=== PATIENT | male | born 1980 | race Caucasian/White ===

== ENCOUNTER → 2016-08-16 | Outpatient (CLI) | payer OTHER ==
--- NOTE | 2016-08-16 21:28 | REP ---
CT LUMBAR SPINE WITHOUT CONTRAST: HISTORY: Back pain. There is no disc bulge or herniation at the L1-2 level. The L1 nerves exit the neural foramina without compression. A diffuse disc bulge is present at the L2-3 level. There is minimal compression of the thecal sac. The L2 nerves exit the neural foramina without compression. A diffuse disc bulge is present at the L3-4 level. There are 2 mm of retrolisthesis of L3 on L4. There is minimal compression of the thecal sac. The L3 nerves exit the neural foramina without compression. A diffuse disc bulge is present at the L4-5 level. There is minimal compression of the thecal sac. There is hypertrophy of the posterior articulating facets. The L4 nerves exit the neural foramina without compression. The patient is status post L5-S1 anterior and posterior spinal fusion and L5 laminectomy. Bone graft material is present anteriorly and metal rods and pedicle screws posteriorly. A disc bulge is present at this level. There is no thecal sac compression. There are 5 mm of grade 1 spondylolisthesis of L5 on S1. There is compression of the left L5 nerve in the neural foramen. The right L5 nerve exits the neural foramen without compression. The L3-4 and L4-5 intervertebral discs are decreased in height consistent with disc degeneration. IMPRESSION: 1. Diffuse disc bulges at the L3-4 and L4-5 levels with minimal thecal sac compression. 2. Diffuse disc bulge and retrolisthesis at the L3-4 level with minimal thecal sac compression. 3. The patient is status post L5-S1 anterior and posterior spinal fusion and L5 laminectomy. There is grade 1 spondylolisthesis of L5 on S1. There is compression of the left L5 nerve in the neural foramen. Signed by Jacobo Washington MD 08/17/2016 07:52 A
--- NOTE | 2016-08-16 22:20 | REP ---
MRI LUMBAR SPINE WITHOUT AND WITH CONTRAST: HISTORY: Back pain. Decreased signal intensity on T2-weighted images is present in the L2-3 through L5-S1 intervertebral discs. The discs are decreased in height. These findings are consistent with disc degeneration. There is no disc bulge or herniation at the L1-2 level. The L1 nerves exit the neural foraminal without compression. A diffuse disc bulge is present at the L2-3 level. There is minimal compression of the thecal sac. The L2 nerves exit the neural foramina without compression. A diffuse disc bulge is present at the L3-4 level. There are 2 mm of retrolisthesis of L3 on L4. There is minimal compression of the thecal sac. The L3 nerves exit the neural foramina without compression. A diffuse disc bulge is present at the L4-5 level. There is minimal compression of the thecal sac. There is hypertrophy of the posterior articulating facets. The L4 nerves exit the neural foramina without compression. The patient is status post L5-S1 anterior and posterior spinal fusion and L5 laminectomy. Bone graft material is present anteriorly and metal rods and pedicle screws posteriorly. A diffuse disc bulge is present at the L5-S1 level. There is no thecal sac compression. There is hypertrophy of the posterior articulating facets. There is compression of the left L5 nerve in the neural foramen. The right L5 nerve exits the neural foramen without compression. Enhancing scar tissue is present at the laminectomy site. The conus medullaris is normal in appearance terminating at the level of the T12-L1 intervertebral disc. A hemangioma is present in the L2 vertebral body. Increased signal intensity on T2-weighted images is present in the endplates of the L5 and S1 vertebral bodies. This represents degenerative change. IMPRESSION: 1. Diffuse disc bulges at the L2-3 and L4-5 levels with minimal thecal sac compression. 2. Diffuse disc bulge and retrolisthesis at L3-4 level with minimal thecal sac compression. 3. The patient is status post L5-S1 anterior and posterior spinal fusion and L5 laminectomy. There is grade 1 spondylolisthesis of L5 on S1. There is compression of the left L5 nerve in the neural foramen. Signed by Jacobo Washington MD 08/17/2016 07:51 A
== END ==
LOC: M RAD 13:06
PROVIDERS: ATTEND Orthopaedic Surgery
DX: M51.26 Other intervertebral disc displacement, lumbar region (principal); M43.17 Spondylolisthesis, lumbosacral region; M48.06 Spinal stenosis, lumbar region; Z98.1 Arthrodesis status
CPT/HCPCS: 72131; 72158; A9576

== ENCOUNTER 2018-05-09 12:58 | Inpatient (IN) | payer OTHER ==
[~2018-05-09] VITALS: Ht 180.3 cm; Wt 113.5 kg
[2018-05-09] MEDS ORDERED: OMEP20TA PO (13:23)
[2018-05-09] MEDS ORDERED: ABIL1TAB11 PO (13:23)
[2018-05-09] MEDS ORDERED: CLON0.5T8 PO (13:23)
[2018-05-09] MEDS ORDERED: IRBE150T14 PO (13:23)
[2018-05-09] MEDS ORDERED: SERT-155 PO (13:23)
[2018-05-09 13:44] LABS: HEMATOCRIT 47.3 % (42.0-52.0); HEMOGLOBIN 16.5 g/dl (13.5-17.5); MEAN CORPUSCULAR HEMOGLOBIN 30.9 pg (27.0-33.0); MEAN CORPUSCULAR HGB CONC 34.9 g/dl (32.0-36.5); MEAN CORPUSCULAR VOLUME 88.6 fl (80.0-96.0); PLATELET COUNT, AUTOMATED 296 10^3/uL (150-450); RED BLOOD COUNT 5.34 10^6/uL (4.30-6.10); WHITE BLOOD COUNT 12.9 10^3/uL (4.0-10.0)
[2018-05-09 14:04] LABS: AMPHETAMINES LEVEL URINE NEGATIVE (NEGATIVE); BARBITURATES URINE NEGATIVE (NEGATIVE); BENZODIAZEPINES URINE NEGATIVE (NEGATIVE); CANNABINOIDS URINE POSITIVE (NEGATIVE); COCAINE METABOLITE URINE NEGATIVE (NEGATIVE); METHADONE URINE NEGATIVE (NEGATIVE); OPIATES URINE NEGATIVE (NEGATIVE); PHENCYCLIDINE URINE NEGATIVE (NEGATIVE)
[2018-05-09 14:20] LABS: ACETAMINOPHEN LEVEL < 2.0 UG/ML (10.0-30.0); ALT/SGPT 66 U/L (12-78); BILIRUBIN,DIRECT < 0.1 MG/DL (0.0-0.2); BILIRUBIN,TOTAL 0.3 MG/DL (0.2-1.0); BLOOD UREA NITROGEN 13 MG/DL (7-18); CALCIUM LEVEL 9.1 MG/DL (8.5-10.1); CARBON DIOXIDE LEVEL 28 MEQ/L (21-32); CHLORIDE LEVEL 102 MEQ/L (98-107); CREATININE FOR GFR 1.07 MG/DL (0.70-1.30); ETHYL ALCOHOL (ETHANOL) 0.003 % (0.000-0.010); GLOMERULAR FILTRATION RATE > 60.0 (>60); GLUCOSE, FASTING 94 MG/DL (70-100); POTASSIUM SERUM 4.2 MEQ/L (3.5-5.1); SALICYLATE LEVEL 2.7 MG/DL (5.0-30.0); SODIUM LEVEL 138 MEQ/L (136-145); TOTAL PROTEIN 7.2 GM/DL (6.4-8.2)
[2018-05-09] MEDS ORDERED: MOM 30ML SUSPENSION UDC PO PRN (16:00)
[2018-05-09] MEDS ORDERED: MAALOX 30 ML SUSP *UDC PO PRN (16:00)
[2018-05-09] MEDS ORDERED: IBUP80TA PO (16:08)
[2018-05-09] MEDS ORDERED: OMEP20CA3 PO (16:08)
[2018-05-09] MEDS ORDERED: SERT-138 PO (16:08)
[2018-05-09] MEDS ORDERED: NICOTINE 14 MG/24 HR TRANSDERMAL TD ONE (19:30)
[2018-05-09] MEDS: traZODone 50 MG TAB PO PRN (20:32)
[2018-05-09] MEDS: clonazePAM 0.5 MG TAB PO SCH (20:32)
[2018-05-09 20:38] VITALS: BP 126/75
[2018-05-09 20:46] VITALS: BP 126/75
[2018-05-10 06:44] VITALS: BP 151/98
[2018-05-10] MEDS: clonazePAM 0.5 MG TAB PO SCH ×3 (08:41→20:05)
[2018-05-10] MEDS: NICOTINE 14 MG/24 HR TRANSDERMAL TD SCH (08:41)
[2018-05-10] MEDS: OMEPRAZOLE 20 MG CAP PO SCH (08:41)
[2018-05-10] MEDS ORDERED: SERTRALINE HCL 50 MG TAB PO SCH (09:00)
[2018-05-10] MEDS: hydroCHLOROthiazide 12.5 MG CAPSULE PO SCH (11:30)
[2018-05-10] MEDS: IRBESARTAN 150 MG TAB PO SCH (11:30)
[2018-05-10] MEDS ORDERED: PILL CRUSHER/CUTTER 1 EACH XX PRN (14:15)
[2018-05-10 18:00] VITALS: BP 140/91
[2018-05-10] MEDS: traZODone 50 MG TAB PO PRN (20:05)
[2018-05-10] MEDS: ARIPiprazole 15 MG TAB (AbiLIFY) PO SCH (20:05)
[2018-05-10] MEDS ORDERED: IBUPROFEN 800 MG TAB PO PRN (20:30)
[2018-05-10] MEDS: IBUPROFEN 800 MG TAB PO PRN (20:42)
[2018-05-11 06:00] VITALS: BP 139/81
[2018-05-11] MEDS: IBUPROFEN 800 MG TAB PO PRN ×2 (06:52→15:02)
[2018-05-11] MEDS: hydroCHLOROthiazide 12.5 MG CAPSULE PO SCH (08:19)
[2018-05-11] MEDS: SERTRALINE 100 MG TAB PO SCH (08:19)
[2018-05-11] MEDS: IRBESARTAN 150 MG TAB PO SCH (08:19)
[2018-05-11] MEDS: clonazePAM 0.5 MG TAB PO SCH ×3 (08:19→20:16)
[2018-05-11] MEDS: OMEPRAZOLE 20 MG CAP PO SCH (08:19)
[2018-05-11] MEDS: NICOTINE 14 MG/24 HR TRANSDERMAL TD SCH (08:20)
[2018-05-11 18:09] VITALS: BP 130/89
[2018-05-11] MEDS: traZODone 100 MG TAB PO PRN (20:16)
[2018-05-11] MEDS: ARIPiprazole 15 MG TAB (AbiLIFY) PO SCH (20:16)
[2018-05-11] MEDS: ACETAMINOPHEN TAB 650MG DOSE (2X325MG) PO PRN (21:20)
[2018-05-12] MEDS: IBUPROFEN 800 MG TAB PO PRN ×2 (06:17→14:11)
[2018-05-12 06:47] VITALS: BP 134/90
[2018-05-12] MEDS: NICOTINE 14 MG/24 HR TRANSDERMAL TD SCH (08:15)
[2018-05-12] MEDS: clonazePAM 0.5 MG TAB PO SCH ×3 (08:15→19:59)
[2018-05-12] MEDS: hydroCHLOROthiazide 12.5 MG CAPSULE PO SCH (08:15)
[2018-05-12] MEDS: OMEPRAZOLE 20 MG CAP PO SCH (08:15)
[2018-05-12] MEDS: SERTRALINE 100 MG TAB PO SCH (08:16)
[2018-05-12] MEDS: IRBESARTAN 150 MG TAB PO SCH (08:18)
--- NOTE | 2018-05-12 09:11 | MHHPE ---
DATE OF ADMISSION: 05/09/2018 HISTORY OF PRESENT ILLNESS: This is the second psychiatric hospitalization for this 37-year-old white man who was admitted with a history of depression, but this has been worsening for the past month to the point where he has been feeling hopeless and helpless. He called the [facility] clinic and voiced suicidal ideations. He was brought into the hospital by the police and he voiced thoughts of wanting to cut himself. He has chronic back pain and is status post spinal cord fusion and that failed in 2016 and now he has a spinal cord stimulator which only helps partially. He states that he feels like a burden to his family, that his had to go out and get a second job at one point because of their finances. His disability finally went through so he is hoping once he starts getting money from disability that that might relieve some of the financial burden. The patient attends [facility] clinic and he was on Celexa for a long time and it worked until it stopped working and then about a month ago he was started on his current medications of Zoloft which is 150 mg and Abilify 5 mg daily. He is also on Klonopin 0.5 mg three times a day and he takes trazodone 50 mg at bedtime as needed insomnia and he does feel that the trazodone definitely helps him sleep well. He denies that he has ever made any suicidal attempts. He does have a history of admission to [facility] inpatient mental health unit in November 2006 where he was diagnosed with mood disorder and substance induced mood disorder. He was feeling depressed and he was abusing alcohol and pot at the time. The major stressor at the time was that his son had with congenital heart disease. FAMILY HISTORY: This is negative for any psychiatric illness in the family or any suicides. ABUSE HISTORY: He denies any history of any physical or sexual abuse. SUBSTANCE ABUSE: As noted, he had problems with alcohol abuse in the past, not anymore. He is still using cannabis, but now he feels that it helps him with his pain. MEDICAL HISTORY: The patient has chronic pain in his back and has a spinal cord stimulator that is only partially effective. REVIEW OF SYSTEMS: VITAL SIGNS: Blood pressure (cut off) NEUROMUSCULAR SYSTEM: The patient's gait is normal and there is no involuntary movements noted. APPEARANCE: The patient does not appear to be in any apparent distress. All other systems were reviewed and found to be negative. MENTAL STATUS EXAMINATION: The patient is alert and oriented times three. Eye contact is fair. Psychomotor activity is decreased. There is no formal thought disorder noted. Mood is depressed. Affect full range and appropriate. (cut off) homicidal. The patient admits to having suicidal thoughts on the day of admission. Concentration is fair. Memory intact. Insight and judgment is good. DIAGNOSIS: Major depressive disorder, recurrent, severe, without psychotic symptoms. I would increase his Zoloft to 200 mg daily. I will increase his Abilify from 5 mg to 7.5 mg daily. We will continue Klonopin 0.5 mg three times a day and trazodone 50 mg at bedtime. We will further evaluate and titrate medications as indicated and when stable we will discharge him with appropriate follow-up.
--- NOTE | 2018-05-12 11:06 | MHIPNPDOC ---
[facility] Progress Note Progress Note DATE OF SERVICE: 05/12/18 HISTORY:This is the second psychiatric hospitalization for this 37-year-old white man who was admitted with a history of depression, but this has been worsening for the past month to the point where he has been feeling hopeless and helpless. He called the [facility] health clinic and voiced suicidal ideations. He was brought into the hospital by the police and he voiced thoughts of wanting to cut himself. He has chronic back pain and is status post spinal cord fusion and that failed in 2016 and now he has a spinal cord stimulator which only helps partially. He states that he feels like a burden to his family, that his had to go out and get a second job at one point because of their finances. His disability finally went through so he is hoping once he starts getting money f rom disability that that might relieve some of the financial burden. VITAL SIGNS: See below. NEW TEST RESULTS: See below. CURRENT MEDICATIONS: See below. MENTAL STATUS EXAMINATION: The patient is alert and oriented times three. Eye contact is good. P sychomotor activity is average. There is no formal thought disorder noted. Denies psychosis, hallucinations, delusions. Mood is "better". Affect full range and appropriate. Denies suicidal and homicidal thoughts Concentration is good. Memory intact. Insight and judgment is fair. DIAGNOSES: 1.Major depressive disorder, recurrent, severe, without psychotic symptoms. ASSESSMENT:Pt seen and states that his mood is better. States he's finding his med adjustments beneficial and tolerating them well. States he slept well last night with the use of trazodone which has also benefited his mood. He is attending groups and finding them helpful. States he's and his is supportive. States he has an appt [facility] on 05/22/18 that he's looking forward to attending. He denies insomnia, SI/HI, hallucinations, delusions. Pt feels safe here. MANAGEMENT PLAN: continue current plan Medications: Zoloft 200 mg daily Abilify 7.5 mg daily. Klonopin 0.5 mg three times a day trazodone 50 mg at bedtime TIME SPENT: 30 minutes. Vital Signs Vital Signs Date Time Temp Pulse Resp B/P (MAP) Pulse Ox O2 Delivery O2 Flow Rate FiO2 05/12/18 08:18 138/98 05/12/18 06:47 97.6 85 16 05/11/18 06:00 96 Room Air Current Medications Current Medications Acetaminophen (Tylenol Tab) 650 mg Q6HP PRN PO HEADACHE or DISCOMFORT Last administered on 05/11/18 21:20; Start 05/09/18 at 16:00 Al Hydrox/Mg Hydrox/Simethicone (Mylanta) 30 ml Q4HP PRN PO HEARTBURN/INDIGESTION; Start 05/09/18 at 16:00 Aripiprazole (AbiLIFY) 5 mg QHS PO Last administered on 05/09/18at 20:32; Start 05/09/18 at 21:00; Stop 05/10/18 at 13:56; Status DC Aripiprazole (AbiLIFY) 7.5 mg QHS PO Last administered on 05/11/18at 20:16; Start 05/10/18 at 21:00 Clonazepam (KlonoPIN) 0.5 mg TID PO Last administered on 05/12/18at 08:15; Start 05/09/18 at 21:00 Home Med (Med Rec Complete!) ASDIRECTED XX ; Start 05/09/18 at 16:15; Stop 05/09/18 at 16:15; Status DC Hydrochlorothiazide (Hydrodiuril) 12.5 mg DAILY PO Last administered on 05/12/18at 08:15; Start 05/10/18 at 09:00 Ibuprofen (Advil) 800 mg Q8HP PRN PO MODERATE PAIN (PS 5-7) Last administered on 05/12/18at 06:17; Start 05/10/18 at 20:15 Ibuprofen (Advil) 800 mg Q8HP PRN PO MODERATE PAIN (PS 5-7); Start 05/10/18 at 20:30; Status UNV Irbesartan (Avapro) 150 mg DAILY PO Last administered on 05/12/18 08:18; Start 05/10/18 at 09:00 Magnesium Hydroxide (Milk Of Magnesia) 30 ml DAILYPRN PRN PO CONSTIPATION Last administered on 05/11/18 17:10; Start 05/09/18 at 16:00 Nicotine (Nicoderm Cq 14mg) 1 patch DAILY TD Last administered on 05/12/18 08:15; Start 05/10/18 at 09:00 Omeprazole (PriLOSEC) 20 mg DAILY PO Last administered on 05/12/18at 08:15; Start 05/10/18 at 09:00 Sertraline HCl (Zoloft) 150 mg DAILY PO Last administered on 05/10/18at 08:42; Start 05/10/18 at 09:00; Stop 05/10/18 at 13:56; Status DC Sertraline HCl (Zoloft) 200 mg DAILY PO Last administered on 05/12/18at 08:16; Start 05/11/18 at 09:00 Trazodone HCl (Desyrel) 50 mg QHSP PRN PO INSOMNIA Last administered on 05/10/18at 20:05; Start 05/09/18 at 16:00; Stop 05/11/18 at 14:13; Status DC Trazodone HCl (Desyrel) 100 mg QHSP PRN PO INSOMNIA Last administered on 05/11/18at 20:16; Start 05/11/18 at 14:15 Allergies Coded Allergies: Bupropion (Verified Adverse Reaction, Mild, hand itching, 05/09/18) LUIS DURAN DO May 12, 2018 11:05 am
[2018-05-12] MEDS: ACETAMINOPHEN TAB 650MG DOSE (2X325MG) PO PRN ×2 (12:26→20:01)
--- NOTE | 2018-05-12 17:05 | HPE ---
DATE OF ADMISSION: 05/09/2018 HISTORY OF PRESENT ILLNESS: Please refer to psychiatric history and evaluation for further details on this admission. This examination and history is intended for medical issues, which may need treatment, followup or consultation on this 37-year-old male. ALLERGIES: BUPROPION. PAST MEDICAL HISTORY: Hypertension, gastroesophageal reflux disease (GERD), chronic back pain, right hand and wrist pain. PAST SURGICAL HISTORY: Repair of shattered bones in right hand and fractured wrist in the past. Back surgery. He has a dorsal column stimulator. He has left leg neuropathy. He follows with Dr. Hinds at [facility]. FAMILY HISTORY: Mother with hypertension. Father with hypertension. SOCIAL HISTORY: He is . He has three children, he had four but one due to a heart defect 15 days after . He has a living boy age 10, living girl age 14, living girl age 15. He has alcohol and drug abuse problem. He quit drinking 3 years ago. He occasionally smokes marijuana. When he had his back surgery he quit smoking but he now has an occasional cigarette. LABORATORY DATA: WBC 12.9, hemoglobin 16.6, hematocrit 37.3. Platelets 296. Electrolytes are normal. BUN 13, creatinine 1.07. Urine was positive for cannabinoids. REVIEW OF SYSTEMS: Ten systems review was done and he has pain in his right hand and wrist that he had operated on years ago. He states that he fell several days ago. He was seen by Dr. Tolentino at [facility]. He has a splint on. He is having a CT of the hand and will be following up with him. 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 Otherwise, systems review is unremarkable. He had no problems with his bowel or bladder control. He has a dorsal column stimulator in place. PHYSICAL EXAMINATION: GENERAL: 37-year-old cooperative male in no acute distress. Blood pressure 140/90, pulse 98, respirations 16, temperature 97. Height 71 inches, weight 100.8 kg. The patient is alert and oriented. HEENT: Pupils are equal and reactive to light. Extraocular muscles intact. Sclerae clear. Conjunctivae normal. No facial asymmetry. Pharynx, gums and tongue pink and moist. Tongue is midline. NECK: Supple without lymphadenopathy, thyromegaly or goiter. Carotids are 2+ without bruit. CHEST: Clear to auscultation without wheeze or retraction. HEART: Regular. ABDOMEN: Benign. Bowel sounds positive. GENITOURINARY/RECTAL: Not done. EXTREMITIES: No clubbing, cyanosis, and edema. Peripheral pulses equal and palpable bilaterally. Right wrist and posterior hand tender to palpation, able to flex and extend. Can make a fist, but is stable. Capillary refill is less than 2 seconds. Hand is warm. Radial pulse is palpable. IMPRESSION/PLAN: 1. Injury secondary to fall of right wrist and hand. Continue with splint. I have ordered ibuprofen 800 mg one by mouth every 8 hours as needed for pain. 2. Chronic back pain. Continue to followup with Dr. Hinds at [facility]. 3. Hypertension. Blood pressure is slightly elevated. He is on hydrochlorothiazide and irbesartan. He is currently in pain. After receiving ibuprofen, we will have blood pressure monitored. May need to increase the irbesartan. 4. History of gastroesophageal reflux disease (GERD). Good response with Prilosec. 5. Psychiatric plan per psychiatry.
[2018-05-12 18:00] VITALS: BP 132/85
[2018-05-12] MEDS: ARIPiprazole 15 MG TAB (AbiLIFY) PO SCH (20:00)
[2018-05-12] MEDS: traZODone 100 MG TAB PO PRN (20:00)
--- NOTE | 2018-05-12 21:15 | MHIPN ---
DATE: 05/11/2018 The patient states, "I am doing great today." He says that he slept very good. He has no complaints. MENTAL STATUS EXAMINATION: He is alert and oriented times three. Eye contact is fair. Psychomotor activity is normal. He is verbally spontaneous. There is no formal thought disorder. Mood is "great." Affect is full range and appropriate. He is not psychotic, suicidal or homicidal. Concentration is fair. Memory is intact. Insight and judgment fair. DIAGNOSES: 1. Major depressive disorder, recurrent, severe and without psychotic symptoms. TREATMENT PLAN: At this point, we will continue to monitor the patient for continued elevation of suicidal ideation and stabilization of his mood.
[2018-05-13] MEDS: IBUPROFEN 800 MG TAB PO PRN (06:30)
[2018-05-13 07:00] VITALS: BP 132/85
[2018-05-13 08:10] VITALS: BP 132/82
[2018-05-13] MEDS: IRBESARTAN 150 MG TAB PO SCH (08:10)
[2018-05-13] MEDS: OMEPRAZOLE 20 MG CAP PO SCH (08:10)
[2018-05-13] MEDS: clonazePAM 0.5 MG TAB PO SCH (08:10)
[2018-05-13] MEDS: NICOTINE 14 MG/24 HR TRANSDERMAL TD SCH (08:10)
[2018-05-13] MEDS: SERTRALINE 100 MG TAB PO SCH (08:10)
[2018-05-13] MEDS: hydroCHLOROthiazide 12.5 MG CAPSULE PO SCH (08:10)
--- NOTE | 2018-05-13 09:06 | MHDSPDOC ---
[facility] Discharge Summary Discharge Summary DATE OF ADMISSION: May 09, 2018 at 4:00 pm DATE OF DISCHARGE: May 13, 2017 DISCHARGE DIAGNOSES: 1. Major depressive disorder, recurrent, severe and without psychotic symptoms. REASON FOR ADMISSION: This is the second psychiatric hospitalization for this 37-year-old white man who was admitted with a history of depression, but this has been worsening for the past month to the point where he has been feeling hopeless and helpless. He called the [place] mental health clinic and voiced suicidal ideations. He was brought into the hospital by the police and he voiced thoughts of wanting to cut himself. He has chronic back pain and is status post spinal cord fusion and that failed in 2016 and now he has a spinal cord stimulator which only helps partially. He states that he feels like a burden to his family, that his had to go out and get a second job at one point because of their finances. His disability finally went through so he is hoping once he starts getting money from disability that that might relieve some of the financial burden. CONSULTANTS INVOLVED:none TREATMENT AND PROGRESS ON THE UNIT : Pt was admitted to [facility], seen for psychiatric assessment and restarted on his outpatient medication zoloft increased to 200mg daily, abilify increased 7.5mg daily, klonopin 0.5mg tid for anxiety. He was provided trazodone 50mg qhs prn insomnia. Pt found his medications beneficial and tolerated them well. He attended groups daily during his stay. His symptoms improved with treatment. On day of discharge he denied depression, anxiety, insomnia, SI/HI, hallucinations, delusions. He was discharged home after family meeting with his friend with follow-up at [facility]. He felt safe for discharge. DISCHARGE ASSESSMENT: Pt seen and states that his mood is good. States he's looking forward to going home and being with his . States he believes drinking was what caused him to become depressed and suicidal as had 5 shots the night he came in which he now realizes was a mistake. States he plans to not drink alcohol anymore and advised not to with mental health illness and meds. States he's finding his med adjustments beneficial and tolerating them well. States he slept well last night with the use of trazodone. He is attending groups and finding them helpful. States he's and his is supportive. States he has an appt already and [facility] on 05/22/18 that he's looking forward to attending. He denies depression, anxiety, insomnia, SI/HI, hallucinations, delusions. Pt feels safe to be discharged home. MENTAL STATUS EXAMINATION ON DISCHARGE: The patient is alert and oriented times three. Eye contact is good. Psychomotor activity is average. There is no formal thought disorder noted. Denies psychosis, hallucinations, delusions. Mood is "good". Affect full range, euthymic, and appropriate. Denies suicidal and homicidal thoughts Concentration is good. Memory intact. Insight and judgment is good MEDICATIONS ON DISCHARGE: Zoloft 200 mg daily Abilify 7.5 mg daily. Klonopin 0.5 mg three times a day trazodone 50 mg at bedtime PLAN/FOLLOWUP ARRANGEMENTS: D/c home with follow-up at [facility]. The amount of time spent in the coordination of care for this patient was approximately 30 minutes. Vital Signs/I&Os Vital Signs Date Time Temp Pulse Resp B/P (MAP) Pulse Ox O2 Delivery O2 Flow Rate FiO2 05/13/18 08:10 132/82 05/13/18 07:00 98.3 72 18 05/11/18 06:00 96 Room Air Medications Scheduled (Irbesartan/Hydrochlorothi 150-12.5 mg) 1 Tab Tab, 1 TAB PO DAILY, (Reported) Aripiprazole (Abilify) 5 Mg Tab, 5 MG PO QHS, (Reported) Omeprazole (Omeprazole) 20 Mg Cap, 20 MG PO DAILY, (Reported) Sertraline HCl (Sertraline HCl) 100 Mg Tab, 150 MG PO DAILY, (Reported) Scheduled PRN Clonazepam (Clonazepam) 0.5 Mg Tab, 0.5 MG PO TID PRN for ANXIETY, (Reported) Ibuprofen (Ibuprofen) 800 Mg Tab, 800 MG PO TID PRN for PAIN, (Reported) Allergies Coded Allergies: Bupropion (Verified Adverse Reaction, Mild, hand itching, 05/09/18) LUIS DURAN DO May 13, 2018 9:06 am
[2018-05-13] MEDS ORDERED: SERT-138 PO (09:20)
[2018-05-13] MEDS ORDERED: TRAZ10TA PO (09:20)
[2018-05-13] MEDS ORDERED: ARIP15TAB PO (09:20)
[2018-05-13] MEDS: ACETAMINOPHEN TAB 650MG DOSE (2X325MG) PO PRN (10:34)
== END 2018-05-13 12:15 | disposition home or self-care (01) | DRG 751 ==
LOC: M ED 12:58 → M ED INP 16:00 → M PSY 17:34
PROVIDERS: ADMIT Psychiatry & Neurology Psychiatry; ATTEND Psychiatry & Neurology Psychiatry
DX: F33.2 Major depressive disorder, recurrent severe without psychotic features (principal); I10 Essential (primary) hypertension; K21.9 Gastro-esophageal reflux disease without esophagitis; M54.5 Low back pain

== ENCOUNTER → 2018-08-12 | Outpatient (REF) | payer MEDICARE, MEDICAID ==
[~2018-08-12] MED LIST: ABIL1TAB11 PO; ARIP1TAB10 PO; CLON0.5T8 PO; IBUP80TA PO; IRBE150T14 PO; OMEP20CA3 PO; OMEP20TA PO; SERT-138 PO; SERT-155 PO; TRAZ10TA PO
== END ==
LOC: M LAB LCGH 09:00
PROVIDERS: ATTEND Orthopaedic Surgery
DX: M19.041 Primary osteoarthritis, right hand (principal)

== ENCOUNTER 2019-02-17 13:43 | Emergency (ER) | payer MEDICAID, MEDICARE, OTHER ==
[~2019-02-17] VITALS: Ht 180.3 cm; Wt 107.8 kg
[~2019-02-17 13:43] MED LIST changes: +OMEP-358 PO; -OMEP20CA3 PO; +OMEP20CA4 PO; -OMEP20TA PO; -SERT-155 PO; +SERT50TA29 PO
[2019-02-17 13:44] VITALS: BP 142/95
[2019-02-17] MEDS ORDERED: TRAZ150T90 (13:49)
[2019-02-17] MEDS ORDERED: ARIP1TAB4 (13:49)
== END 2019-02-17 14:28 | disposition home or self-care (01) ==
LOC: M ED 13:43
DX: F19.10 Other psychoactive substance abuse, uncomplicated (principal); F17.200 Nicotine dependence, unspecified, uncomplicated; Z88.8 Allergy status to other drugs, medicaments and biological substances; M54.9 Dorsalgia, unspecified; F41.9 Anxiety disorder, unspecified; F32.9 Major depressive disorder, single episode, unspecified; K21.9 Gastro-esophageal reflux disease without esophagitis; Z79.899 Other long term (current) drug therapy